=== PATIENT | male | born 1975 | race African-American/Black ===

== ENCOUNTER 2017-11-17 11:25 | Emergency (ER) | payer OTHER ==
[2017-11-17 11:31] VITALS: BP 138/92; PULSE 85; TEMP 98; BMI 25.8
--- NOTE | 2017-11-17 12:45 | PDOC ---
History of Present Illness - General Chief Complaint: Pain Stated Complaint: INJURY Time Seen by Provider: 11/17/17 12:37 History Source: Patient Exam Limitations: Clinical Condition - History of Present Illness Initial Comments: 11/17/17 12:42 Patient with no sig Past medical history presenting with complain of persistent left ankle pain status post twisting ankle while going down stairs yesterday. Patient report 4 out of 10 pain now which is worse with ambulation. Denies fall or hitting head. Denies any other symptoms Timing/Duration: 24 hours Past History - Past Medical History Allergies/Adverse Reactions: Allergies Allergy/AdvReac Type Severity Reaction Status Date / Time No Known Allergies Allergy Verified 11/17/17 11:31 Home Medications: Ambulatory Orders Leg Brace [Ankle Brace] 1 each [facility] DAILY PRN #1 each 11/17/17 Naproxen 500 mg PO BID PRN #20 tablet 11/17/17 COPD: No - Suicide/Smoking/Psychosocial Hx Smoking Status: Yes Smoking History: Current every day smoker Number of Cigarettes Smoked Daily: 20 Information on smoking cessation initiated: No Hx Alcohol Use: No Review of Systems - Review of Systems Able to Perform ROS?: Yes Is the patient limited Japanese proficient: No Constitutional: No: Chills, Diaphoresis, Fever, Loss of Appetite, Malaise, Night Sweats, Weakness, Weight Stable, Unintentional Wgt. Loss, Unexplained wgt Loss, Other HEENTM: No: Eye Pain, Blurred Vision, Tearing, Recent change in vision, Double Vision, Cataracts, Ear Pain, Ocular Prothesis, Ear Discharge, Nose Pain, Nose Congestion, Tinnitus, Nose Bleeding, Hearing Loss, Throat Pain, Throat Swelling , Mouth Pain, Dental Problems, Difficulty Swallowing, Mouth Swelling, Other Respiratory: No: Cough, Orthopnea, Shortness of Breath, SOB with Exertion, SOB at Rest, Stridor, Wheezing, Productive cough, Hemoptysis, Other Cardiac (ROS): No: Chest Pain, Edema, Irregular Heart Rate, Lightheadedness, Palpitations, Syncope, Chest Tightness, Other ABD/GI: No: Abdominal Distended, Abd. Pain w/ defecation, Blood Streaked Bowels , Constipated, Diarrhea, Difficulty Swallowing, Nausea, Poor Appetite, Poor Fluid Intake, Rectal Bleeding, Vomiting, Indigestion, Abdominal cramping, Tarry Stools, Other Musculoskeletal: Yes: Symptoms Reported, See HPI, Joint Swelling (lateral side of left ankle), Muscle Pain (lateral side of left ankle). No: Back Pain, Gout, Joint Pain, Muscle Weakness, Neck Pain, Joint Stiffness, Other All Other Systems: Reviewed and Negative *Physical Exam - Vital Signs Last Vital Signs Temp Pulse Resp BP Pulse Ox 98 F 85 18 138/92 99 11/17/17 11:28 11/17/17 11:28 11/17/17 11:28 11/17/17 11:11/17/17 11:28 - Physical Exam Comments: 11/17/17 12:43 GENERAL: Well developed, well nourished. Awake and alert. No acute distress. HEENT: Normocephalic, atraumatic. PERRLA, EOMI. No conjunctival pallor. Sclera are non- icteric. Moist mucous membranes. Oropharynx is clear. NECK: Supple. Full ROM. No JVD. Carotid pulses 2+ and symmetric, without bruits. No thyromegaly. No lymphadenopathy. CARDIOVASCULAR: Regular rate and rhythm. No murmurs, rubs, or gallops. Distal pulses are 2+ and symmetric. PULMONARY: No evidence of respiratory distress. Lungs clear to auscultation bilaterally. No wheezing, rales or rhonchi. ABDOMINAL: Soft. Non-tender. Non-distended. No rebound or guarding. No organomegaly. Normoactive bowel sounds. MUSCULOSKELETAL : Moderate tenderness to lateral aspect of left ankle with mild swelling. Mild tenderness over medial malleolus of left ankle. No tenderness to foot or lower leg. No visible fracture or deformity. Normal range of motion at all joints. EXTREMITIES: No cyanosis. No clubbing. No edema. No calf tenderness. SKIN: Warm and dry. Normal capillary refill. No rashes. No jaundice. NEUROLOGICAL: Alert, awake, appropriate. Cranial nerves 2-12 intact. No deficits to light touch and temperature in face, upper extremities and lower extremities. No motor deficits in the in face, upper extremities and lower extremities. Normoreflexic in the upper and lower extremities. Normal speech. Toes are down- going bilaterally. Gait is normal without ataxia. PSYCHIATRIC: Cooperative. Good eye contact. Appropriate mood and affect. General Appearance: Yes: Nourished, Appropriately Dressed. No: Apparent Distress ED Treatment Course - RADIOLOGY Radiology Studies Ordered: Category Date Time Status ANKLE & FOOT-LEFT* [RAD] Stat Radiology 11/17/17 12:40 Ordered Medical Decision Making - Medical Decision Making 11/17/17 12:44 Patient with no significant past medical history presenting for evaluation of left ankle pain status post twisting ankle while going down stairs yesterday. Exam significant for moderate tenderness over lateral malleolus. X-ray of left ankle and foot ordered to rule out acute fracture pathology 11/17/17 13:04 X-ray of left ankle and foot shows no acute pathology or fracture. Patient will be cheated with Aircast, James bandage and NSAIDs with orthopedist follow-up as needed for ankle sprain *DC/Admit/Observation/Transfer Diagnosis at time of Disposition: Ankle sprain Qualifiers: Encounter type: initial encounter Involved ligament of ankle: unspecified ligament Laterality: left Qualified Code(s): S93.402A - Sprain of unspecified ligament of left ankle, initial encounter - Discharge Dispostion Disposition: HOME Condition at time of disposition: Stable Decision to Admit order: No - Prescriptions Prescriptions: Leg Brace [Ankle Brace] 1 each [facility] DAILY PRN #1 each PRN Reason: left ankle pain Naproxen 500 mg PO BID PRN #20 tablet PRN Reason: ankle pain - Referrals Referrals: Maurice Mays MD [Staff Physician] - - Patient Instructions Printed Discharge Instructions: Ankle Sprain Additional Instructions: X-ray of the ankle and foot shows no fracture. symptoms is ankle sprain. Take prescribed medication as needed for pain and use ankle brace daily until symptoms resolve - Post Discharge Activity Forms/Work/School Notes: Back to Work
== END 2017-11-17 13:48 | disposition home or self-care (01) ==
LOC: JERFT 11:25
PROC: 2W3RX1Z Immobilization of Left Lower Leg using Splint (ICD-10-PCS; principal; 2017-11-17)
DX: S93.402A Sprain of unspecified ligament of left ankle, initial encounter (principal); X50.1XXA Overexertion from prolonged static or awkward postures, initial encounter; Y93.89 Activity, other specified; Y92.89 Other specified places as the place of occurrence of the external cause; Y99.8 Other external cause status
CPT/HCPCS: 73610-TC-LT-FY; 73630-TC-LT; 99281-25